=== PATIENT | female | born 2000 | race Caucasian/White ===

== ENCOUNTER 2020-06-08 02:32 | Emergency (ER) | payer OTHER ==
[~2020-06-08] VITALS: Ht 162.6 cm; Wt 68.0 kg
[2020-06-08 02:41] VITALS: BP 110/84; Ht 162.6 cm; Wt 68.0 kg
== END 2020-06-08 02:51 ==
LOC: ED 02:32
DX: Z02.89 Encounter for other administrative examinations (principal)
CPT/HCPCS: J7050; J7060